=== PATIENT | female | born 2000 | race Caucasian/White ===

== ENCOUNTER 2024-01-02 12:23 | Inpatient (IN) | payer OTHER ==
[~2024-01-02] VITALS: Ht 154.9 cm; Wt 2.7 kg
[2024-01-02] MEDS ORDERED: PRENATAL TABLE1 EAC1 PO (12:45)
[2024-01-02 13:19] LABS: HEMOGLOBIN 12.5 g/dL (12.0-15.00); MEAN CELL VOLUME 92.3 fL (80.00-100.00); MEAN CORPUSCULAR HEMOGLOBIN 31.3 pg (27.00-32.0); MEAN CORPUSCULAR HGB CONC 33.9 g/dl (32.0-36.0); PLATELET COUNT 251 K/uL (150-450); RED BLOOD COUNT 4.01 M/uL (4.00-6.00); RED CELL DISTRIBUTION WIDTH 14.2 % (11.5-14.5)
[2024-01-02 13:20] LABS: URINE APPEARANCE Clear; URINE BILIRRUBIN Negative (NEGATIVE); URINE BLOOD Negative; URINE COLOR Yellow; URINE GLUCOSE Negative (NEGATIVE); URINE LEUKOCYTE Small; URINE NITRATE Negative; URINE PROTEIN Negative (NEGATIVE); URINE UROBILINOGEN 0.2 E.U./dl
[2024-01-02 13:22] LABS: URINE BACTERIA 1985.5 uL (0.0-1933); URINE EPITHELIAL CELLS 22.2 uL (0.0-38.8); URINE WBC 32.9 uL (0.0-23.2)
[2024-01-02 14:06] LABS: INR 0.96; PARTIAL THROMBOPLASTIN TIME 26.6 SECONDS (22.0-34.0); PROTHROMBIN TIME 10.1 SECONDS (9.0-11.5)
[2024-01-02] MEDS ORDERED: RINGERS SOLUTION,LACTATED 1,000 ML IV SCH ×2 (15:30→20:15)
[2024-01-02] MEDS ORDERED: OXYTOCIN 10 UNITS/ML VIAL ONE ×2 (16:08→18:22)
[2024-01-02] MEDS ORDERED: AMPICILLIN SODIUM 2,000 MG VIAL ONE (16:08)
[2024-01-02] MEDS ORDERED: OXYTOCIN 20 UNITS/500ML RL PIGGYBAG IV SCH (16:45)
[2024-01-02] MEDS ORDERED: AMPICILLIN SODIUM 2,000 MG VIAL IV ONE (17:15)
[2024-01-02] MEDS ORDERED: ERYTHROMYCIN BASE 3.5 GM OINT...G. OP ONE (18:22)
[2024-01-02] MEDS ORDERED: KETOROLAC TROMETHAMINE 60 MG VIAL IM STA (20:13)
[2024-01-02] MEDS ORDERED: CHLORHEXIDINE GLUCONATE 120 ML BOTTLE TOP SCH (20:15)
[2024-01-02] MEDS ORDERED: MEPERIDINE HCL/PF 50 MG/ML VIAL IM PRN (20:15)
[2024-01-02] MEDS ORDERED: OXYTOCIN 1,000 ML IV SCH (20:15)
[2024-01-02] MEDS ORDERED: ERYTHROMYCIN BASE 1 GM TUBE OP SCH (20:15)
[2024-01-02] MEDS ORDERED: PROMETHAZINE HCL 25 MG/ML AMPUL IM PRN (20:15)
[2024-01-02] MEDS ORDERED: ERYTHROMYCIN BASE 1 GM TUBE OP ONE (20:45)
[2024-01-02] MEDS ORDERED: OXYTOCIN 10 UNIT/ML (10ML) IV ONE (20:45)
[2024-01-02 22:23] LABS: ABG PH 7.319 (7.35-7.45); ABG PO2 19.2 mmHg (80-100); ABG pCO2 45.7 mmHg (35-45); BASE EXCESS -3.3 mmol/l; SaO2 24.4 %
[2024-01-02 22:24] LABS: Tco2 24.4 mmol/l; o2 21 %
[2024-01-03] MEDS ORDERED: OXYTOCIN 10 UNITS/ML VIAL ONE (02:48)
[2024-01-03 03:36] LABS: HEMATOCRIT 33.3 % (36.0-45.00); HEMOGLOBIN 11.4 g/dL (12.0-15.00); MEAN CELL VOLUME 93.3 fL (80.00-100.00); MEAN CORPUSCULAR HEMOGLOBIN 31.9 pg (27.00-32.0); MEAN CORPUSCULAR HGB CONC 34.2 g/dl (32.0-36.0); PLATELET COUNT 203 K/uL (150-450); RED BLOOD COUNT 3.57 M/uL (4.00-6.00)
[2024-01-03] MEDS ORDERED: OxyCODONE HCL/APAP UD (PERCOCET) PO PRN (09:00)
== END 2024-01-05 12:17 | disposition home or self-care (01) | DRG 788 ==
LOC: OBS/DEL 12:23 → LDR 16:02 → O/R 20:17 → OB/GYN 22:58
PROVIDERS: ADMIT Obstetrics & Gynecology; ATTEND Obstetrics & Gynecology
PROC: 4A1HXCZ Monitoring of Products of Conception, Cardiac Rate, External Approach (ICD-10-PCS; 2024-01-02)
PROC: 10D00Z1 Extraction of Products of Conception, Low, Open Approach (ICD-10-PCS; principal; 2024-01-02 20:45)
DX: O36.8330 Maternal care for abnormalities of the fetal heart rate or rhythm, third trimester, not applicable or unspecified (principal); Z3A.38 38 weeks gestation of pregnancy; Z37.0 Single live birth; Z20.822 Contact with and (suspected) exposure to COVID-19

== ENCOUNTER 2025-04-02 09:30 | Inpatient (IN) | payer OTHER ==
[~2025-04-02] VITALS: Ht 154.9 cm; Wt 3.2 kg
[~2025-04-02 09:30] MED LIST: PRENATAL TABLE1 EAC1 PO
[2025-04-02 10:57] LABS: PH,URINE 7.5 (5.0-8.0); URINE APPEARANCE Cloudy; URINE BILIRRUBIN Negative (NEGATIVE); URINE BLOOD Negative; URINE COLOR Yellow; URINE GLUCOSE Negative (NEGATIVE); URINE KETONE Negative (NEGATIVE); URINE LEUKOCYTE Large; URINE NITRATE Negative; URINE PROTEIN Negative (NEGATIVE)
[2025-04-02 11:00] LABS: BASO % 0.5 % (0.1-1.2); EOS # 0.06 (0.04-0.54); EOS % 0.6 % (0.7-7.0); HEMOGLOBIN 12.1 g/dL (11.2-15.7); LYMPH # 1.32 (1.18-3.74); LYMPH % 13.5 % (19.3-53.1); MEAN CORPUSCULAR HEMOGLOBIN 27.6 pg (25.6-32.2); MONO # 0.94 (0.24-0.82); MONO % 9.6 % (4.7-12.5); NEUT # 7.29 (1.56-6.13); NEUT % 74.6 % (34.0-71.1); PLATELET COUNT 222 K/uL (163-369); RED BLOOD COUNT 4.38 M/uL (3.93-5.22); RED CELL DISTRIBUTION WIDTH 23.1 % (11.6-14.4)
[2025-04-02 11:01] LABS: URINE CAST 1.62 uL (0.0-1.40); URINE EPITHELIAL CELLS 88.9 uL (0.0-38.8); URINE RBC 31.8 uL (0.0-20.8); URINE WBC 328.3 uL (0.0-23.2)
[2025-04-02 11:07] LABS: INR 0.95; PARTIAL THROMBOPLASTIN TIME 27.1 SECONDS (22.0-34.0); PROTHROMBIN TIME 10.4 SECONDS (9.0-11.5)
[2025-04-02 11:50] LABS: RH POSITIVE
[2025-04-05 07:38] VITALS: BP 114/75
[2025-04-05] MEDS ORDERED: RINGERS SOLUTION,LACTATED 1,000 ML IV SCH ×2 (08:45→14:45)
[2025-04-05] MEDS ORDERED: IRON 100 PLUS1 EACH PO (08:50)
[2025-04-05 10:04] LABS: BASO % 0.3 % (0.1-1.2); EOS # 0.01 (0.04-0.54); EOS % 0.1 % (0.7-7.0); HEMATOCRIT 38.1 % (34.1-44.9); HEMOGLOBIN 12.4 g/dL (11.2-15.7); LYMPH # 0.92 (1.18-3.74); LYMPH % 6.2 % (19.3-53.1); MONO # 0.91 (0.24-0.82); MONO % 6.1 % (4.7-12.5); NEUT # 12.83 (1.56-6.13); NEUT % 86.4 % (34.0-71.1); PLATELET COUNT 235 K/uL (163-369); RED BLOOD COUNT 4.43 M/uL (3.93-5.22); RED CELL DISTRIBUTION WIDTH 22.4 % (11.6-14.4)
[2025-04-05 10:15] LABS: URINE APPEARANCE Clear; URINE BILIRRUBIN Negative (NEGATIVE); URINE BLOOD Negative; URINE COLOR Yellow; URINE GLUCOSE Negative (NEGATIVE); URINE KETONE Trace (NEGATIVE); URINE LEUKOCYTE Negative; URINE NITRATE Negative; URINE PROTEIN Negative (NEGATIVE)
[2025-04-05 10:20] LABS: URINE BACTERIA 111.3 uL (0.0-1933); URINE EPITHELIAL CELLS 10.4 uL (0.0-38.8); URINE RBC 6.6 uL (0.0-20.8); URINE WBC 2.3 uL (0.0-23.2)
[2025-04-05 10:23] LABS: PARTIAL THROMBOPLASTIN TIME 26.8 SECONDS (22.0-34.0); PROTHROMBIN TIME 10.9 SECONDS (9.0-11.5)
[2025-04-05] MEDS ORDERED: OXYTOCIN 10 UNITS/ML VIAL IV ONE (12:30)
[2025-04-05] MEDS ORDERED: ERYTHROMYCIN BASE OPHT 1GM EACH TUBE OP ONE (12:30)
[2025-04-05] MEDS ORDERED: CEFOXITIN SODIUM 2,000 MG VIAL IV ONE (14:00)
[2025-04-05] MEDS ORDERED: KETOROLAC TROMETHAMINE 60 MG VIAL IM STA (14:32)
[2025-04-05] MEDS ORDERED: CHLORHEXIDINE GLUCONATE 120 ML BOTTLE TOP SCH (14:45)
[2025-04-05] MEDS ORDERED: OXYTOCIN 1,000 ML IV SCH (14:45)
[2025-04-05] MEDS ORDERED: MORPHINE SULFATE 4 MG/ML CARTRIDGE IV PRN (14:45)
[2025-04-05 16:01] LABS: BASO % 0.2 % (0.1-1.2); HEMATOCRIT 37.9 % (34.1-44.9); HEMOGLOBIN 12.1 g/dL (11.2-15.7); LYMPH # 0.82 (1.18-3.74); LYMPH % 4.8 % (19.3-53.1); MEAN CORPUSCULAR HEMOGLOBIN 27.6 pg (25.6-32.2); MONO # 0.98 (0.24-0.82); MONO % 5.8 % (4.7-12.5); NEUT # 15.07 (1.56-6.13); NEUT % 88.6 % (34.0-71.1); PLATELET COUNT 218 K/uL (163-369); RED BLOOD COUNT 4.38 M/uL (3.93-5.22); RED CELL DISTRIBUTION WIDTH 22.5 % (11.6-14.4)
[2025-04-05 16:41] VITALS: BP 127/81
[2025-04-05] MEDS ORDERED: PROMETHAZINE HCL 25 MG/ML AMPUL IV ONE (20:00)
[2025-04-06 00:21] VITALS: BP 108/64
[2025-04-06 08:24] VITALS: BP 104/68; O2SAT 99
[2025-04-06] MEDS ORDERED: ACETAMINOPHEN WITH CODEINE 1 UDTAB TABLET PO PRN (09:00)
[2025-04-06 12:32] VITALS: BP 106/69
[2025-04-06] MEDS ORDERED: BISACODYL 10 MG/SUPP.RECT SUPP.RECT RECTAL NR (13:00)
[2025-04-07 00:48] VITALS: BP 130/69
[2025-04-07 06:16] VITALS: BP 109/63
[2025-04-07 08:00] VITALS: BP 114/76
== END 2025-04-07 14:44 | disposition home or self-care (01) | DRG 785 ==
LOC: OB/GYN 04-05 08:38 → LDR 04-05 08:38 → O/R 04-05 12:39 → OB/GYN 04-05 14:32
PROVIDERS: ADMIT Obstetrics & Gynecology; ATTEND Obstetrics & Gynecology
PROC: 0UB70ZZ Excision of Bilateral Fallopian Tubes, Open Approach (ICD-10-PCS; 2025-04-05)
PROC: 4A1HXCZ Monitoring of Products of Conception, Cardiac Rate, External Approach (ICD-10-PCS; 2025-04-05)
PROC: 10D00Z1 Extraction of Products of Conception, Low, Open Approach (ICD-10-PCS; principal; 2025-04-05 12:00)
DX: O34.211 Maternal care for low transverse scar from previous cesarean delivery (principal); O42.02 Full-term premature rupture of membranes, onset of labor within 24 hours of rupture; Z3A.39 39 weeks gestation of pregnancy; Z37.0 Single live birth; Z30.2 Encounter for sterilization